=== PATIENT | male | born 1985 | race Hispanic/Latino ===

== ENCOUNTER → 2017-12-31 | Outpatient (CLI) | payer SELFPAY ==
--- NOTE | 2017-12-31 12:48 | RAD ---
EXAM DESCRIPTION: Chest,2 Views CLINICAL HISTORY: TB TEST COMPARISON: None TECHNIQUE: PA/lateral FINDINGS: There is no acute appearing cardiac or pulmonary abnormality. Heart size is normal with normal pulmonary vascularity. No pleural effusion or pneumothorax. Lungs are clear with no consolidating infiltrate. Lateral view shows intact sternum and T-spine. IMPRESSION: No acute process is identified in the chest. Electronically signed by: Luis Barros MD 12/31/2017 12:47 PM CDT
== END ==
LOC: RAD 12:30
DX: R76.11 Nonspecific reaction to tuberculin skin test without active tuberculosis (principal)